=== PATIENT | male | born 1970 | race Caucasian/White ===

== ENCOUNTER → 2021-02-20 09:55 | Outpatient (BNVA) | payer OTHER, SELFPAY | PROVIDERS: Referring Provider Internal Medicine Geriatric Medicine; Visit Provider Nurse Practitioner Family ==

== ENCOUNTER 2021-09-04 13:16 | Outpatient (REF) | payer OTHER, SELFPAY ==
--- NOTE | ~2021-09-04 | US_ITS ---
EXAMINATION: US SCROTUM CLINICAL INFORMATION: Scrotal pain. COMPARISON: None. TECHNIQUE: A sonogram of the scrotum was performed assessing bass-scale appearance and color Doppler flow. Spectral Doppler analysis of the arterial and venous flow were performed in the testes bilaterally. FINDINGS: RIGHT: Right testicle measures 4.4 x 1.7 x 2.7 cm, volume 10.3 mL. No focal testicular parenchymal lesions are visualized. Spectral Doppler analysis of the arterial and venous flow is normal in the right testis. There is a small anechoic cyst right testicle upper pole measuring 0.2 x 0.2 x 0.2 cm. Right epididymal head is normal in size. No right hydrocele or varicocele is seen. Right epididymal Doppler flow is normal. LEFT: Left testicle measures 5.3 x 2.0 x 3.1 cm, volume 17.2 mL. No focal testicular parenchymal lesions are visualized. Spectral Doppler analysis of the arterial and venous flow is normal in the left testis. Left epididymal head is normal unremarkable except for a small cyst measuring 0.4 x 0.4 x 0.4 cm. No left hydrocele or varicocele is seen. Left epididymal Doppler flow is normal. US/US scrotum IMPRESSION: Small right scrotal cyst measuring 0.2 cm. Otherwise both testes are unremarkable. There is a small left epididymal head cysts. Otherwise both epididymides are normal. There is normal vascular flow seen to both testes and epididymides.
== END 2021-09-04 13:17 | disposition home or self-care (01) ==
LOC: HO.US 13:16
PROVIDERS: PCP Internal Medicine Geriatric Medicine; Visit Provider Internal Medicine Geriatric Medicine
DX: N50.82 Scrotal pain (principal)
CPT/HCPCS: 76870

== ENCOUNTER 2022-12-11 11:13 | Outpatient (REF) | payer OTHER, SELFPAY ==
--- NOTE | ~2022-12-11 | XR_ITS ---
EXAMINATION: XR SHOULDER, RIGHT CLINICAL INFORMATION: Pain of one month's duration. COMPARISON: None available. TECHNIQUE: AP external rotation, Grashey, scapular Y, and axillary views of the right shoulder. FINDINGS: Bony alignment and mineralization are normal. The glenohumeral joint is intact and shows moderate osteoarthritic change. The acromioclavicular and coracoclavicular intervals are normal. There is moderately severe osteoarthritic change of the acromioclavicular joint. No fracture or dislocation is seen. There is cortical irregularity of the greater tuberosity of the proximal right humerus. There is no soft tissue calcification or foreign body. No right pneumothorax is seen. XR/XR shoulder RT min 2V IMPRESSION: 1. There is moderate osteoarthritic change of the right glenohumeral joint, and moderately severe osteoarthritic change is seen of the acromioclavicular joint. 2. Cortical irregularity of the greater tuberosity of the proximal right humerus suggests possible rotator cuff impingement. No marla calcific tendinitis is noted.
== END 2022-12-11 11:14 | disposition home or self-care (01) ==
LOC: HO.HHCX 11:13
PROVIDERS: Visit Provider Registered Nurse
DX: M25.511 Pain in right shoulder (principal)
CPT/HCPCS: 73030

== ENCOUNTER 2023-01-28 11:16 | Outpatient (REF) | payer OTHER, SELFPAY ==
[2023-01-28 14:27] LABS: Anion Gap 14 (12-20); Blood Urea Nitrogen 11 mg/dL (9-16); Calcium 10.1 mg/dL (8.4-10.2); Carbon Dioxide 25 mmol/L (22-29); Chloride 101 mmol/L (96-108); Estimated Glomerular Filt Rate > 60; Glucose Random 79 mg/dL (60-115); Sodium 136 mmol/L (135-145)
== END 2023-01-28 11:17 | disposition home or self-care (01) ==
LOC: HO.HHCL 11:16
PROVIDERS: Visit Provider Registered Nurse
DX: I10 Essential (primary) hypertension (principal)
CPT/HCPCS: 36415; 80048

== ENCOUNTER 2023-02-12 13:01 | Outpatient (AMB) | payer OTHER, SELFPAY ==
--- NOTE | 2023-02-12 13:08 | MHC.OFFVIS ---
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 The patient describes his pain as sharp and severe in nature. His pain has gotten worse over the last few years in spite of continued non operative treatments. He has been to physical therapy which gave him minimal relief. He has also tried Tylenol and anti-inflammatory medicines which gave him only mild relief. He has had cortisone injections in the past which gave him temporary relief. The patient reports weakness when lifting his right hand above shoulder height. 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 Physical Exam Vital Signs: BMI result Body Mass Index 30.0 Const Other: Well-nourished well-developed very friendly male awake alert and oriented x3 in no acute distress Extrem Other: Bilateral upper extremity examination shows good capillary refill, no skin lesions noted, normal sensation light touch Right shoulder examination shows decreased range of motion when compared to his left shoulder, 4+ out of 5 strength with supraspinatus testing, positive impingement signs, tenderness over his acromioclavicular joint, no instability Office Procedures Joint Injection/Drain Joint Injection/Drain Primary Site: right shoulder Prep: site was prepped using aseptic technique Injected: 40 mg of, Kenalog and 1% lidocaine with epinephrine 1:100,000 Procedure: The patient tolerated the procedure well Coding 85475 - Large joint Procedure code (CPT) selection complete Results Reviewed Results Reviewed: X-rays of the patient's right shoulder show severe acromioclavicular joint narrowing, a type 3 acromion, no acute bony abnormalities Assessment & Plan Assessment & Plan (1) Impingement of right shoulder: Code(s): M25.811 - Other specified joint disorders, right shoulder Plan: Mr. Espino presents with right shoulder pain and weakness due to impingement syndrome, acromioclavicular joint arthritis and possible rotator cuff tearing. I had a lengthy discussion with the patient regarding the treatment options. The risks and benefits of a cortisone injection were discussed at length with the patient. The patient wished to proceed. He tolerated the injection well. I will also send the patient for an MRI of his right shoulder to further evaluate the status of his rotator cuff tendons. I will see him back once the MRI is completed to discuss the findings and treatment options. Feel free to call me at any time should questions regarding his orthopedic management arise. Thank you very much for asking me to see this very friendly gentleman. I spent 22 minutes in reviewing the patient's records and imaging studies, seeing the patient and documenting in the medical record. Orders: Orders AMB Joint Injection/Aspiration Today M25.811 - Other specified joint disorders, right shoulder MR shoulder RT wo con Today M25.811 - Other specified joint disorders, right shoulder Coding Level of Care Code New Pt Level 2 (65284) Diagnoses Impingement of right shoulder M25.811 CPT Codes Coding - Large joint: 50630 - Large joint ([id number])
== END 2023-02-12 13:48 | disposition home or self-care (01) ==
PROVIDERS: PCP Internal Medicine Geriatric Medicine; Visit Provider Orthopaedic Surgery
DX: M25.811 Other specified joint disorders, right shoulder (principal)
CPT/HCPCS: 20610; 99202

== ENCOUNTER → 2023-02-12 13:01 | Outpatient (BNVA) | payer OTHER, SELFPAY | PROVIDERS: PCP Internal Medicine Geriatric Medicine; Visit Provider Orthopaedic Surgery | DX: M25.811 Other specified joint disorders, right shoulder (principal) | CPT/HCPCS: 20610; J3301 ==

== ENCOUNTER 2023-04-20 09:50 | Outpatient (REF) | payer OTHER, SELFPAY ==
--- NOTE | ~2023-04-20 | MR_ITS ---
EXAMINATION: MR SHOULDER WITHOUT CONTRAST, RIGHT CLINICAL INFORMATION: M25.811 - Other specified joint disorders, right shoulder. Patient reports right shoulder pain. Decreased range of motion. COMPARISON: None available. TECHNIQUE: MRI of the shoulder without contrast was attempted on a high-field scanner. However the patient could not complete the examination because of claustrophobia. A single axial T2 weighted sequence was obtained limited by image degrading motion artifact. FINDINGS: Limited evaluation as above. Subscapularis appears intact. Infraspinatus and teres minor intact. Limited assessment of this supraspinatus tendon. Suspect tendinosis and perhaps minimal interstitial partial tear without measurable defect. BICEPS: Normal. CORACOACROMIAL ARCH: Limited evaluation. There is hypertrophic osteoarthritis of the acromioclavicular joint. LABRUM/CAPSULE: There is heterogeneous increased signal throughout the anterior and posterior labrum likely reflecting degenerative change or nondisplaced degenerative tearing. Possible paralabral cystic change along the anterior inferior labral ligamentous complex which can commonly be associated with labral tear. GLENOHUMERAL JOINT/MARROW: There is nonuniform cartilage loss throughout the glenohumeral joint along with marginal osteophytes indicative of osteoarthritis. There is a lobulated lesion within the greater tuberosity. This is bright on T2. No definite surrounding edema. This measures 15 x 15 mm. MR/MR shoulder RT wo con IMPRESSION: 1. Limited examination as the patient could not complete the examination due to claustrophobia. Only a single axial sequence could be obtained which is also limited by image degrading motion artifact. 2. Limited evaluation of the supraspinatus tendon. Suspect tendinosis and perhaps minimal interstitial partial tear but no measurable defect. 3. Osteoarthritis of the acromioclavicular joint. 4. Degenerative change versus nondisplaced degenerative tearing of the anterior and posterior labrum. Possible paralabral cystic change along the anterior inferior labral ligamentous complex which can commonly be associated with labral tear. Lobulated lesion in the greater tuberosity of uncertain etiology and significance. This could reflect a cartilage lesion/enchondroma versus enthesopathic cyst. Other etiologies much less likely. This corresponds to an area of lucency on the radiographs. Consider follow-up MRI imaging without and with contrast if patient willing and able, perhaps on a different model MRI (open MRI) or with the assistance of medication.
== END 2023-04-20 09:51 | disposition home or self-care (01) ==
LOC: HO.MRI 09:50
PROVIDERS: PCP Internal Medicine Geriatric Medicine; Visit Provider Orthopaedic Surgery
DX: M25.811 Other specified joint disorders, right shoulder (principal)
CPT/HCPCS: 73221

== ENCOUNTER 2023-05-07 09:13 | Outpatient (AMB) | payer OTHER, SELFPAY ==
--- NOTE | 2023-05-07 09:14 | MHC.OFFVIS ---
Intake Vital Signs 05/07/23 09:15 Height 5 ft 5 in Weight 180 lb BMI 30.0 Intake Visit Reasons: ov- MRI Shoulder RT review Intake Note: Julián a 52 year old 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 male presents today for a Right shoulder MRI review. Patient also reports that his injection on 02/12/23 has stopped working. He describes his pain as sharp and severe in nature. His pain has gotten worse over the last year in spite of continued non operative treatments. He has done physical therapy which aggravated his pain. He has also tried Tylenol and anti-inflammatory medicines which gave him minimal relief. The patient has difficulty lifting his right hand above shoulder height. 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 Physical Exam Vital Signs: BMI result Body Mass Index 30.0 Const Other: Well-nourished well-developed very friendly male awake alert and oriented x3 in no acute distress Extrem Other: Bilateral upper extremity examination shows good capillary refill, no skin lesions noted, normal sensation light touch Right shoulder examination shows decreased active and passive range of motion when compared to his left shoulder, 4+ out of 5 strength with supraspinatus testing, positive impingement signs, tenderness over his acromioclavicular joint, no instability Results Reviewed Results Reviewed: MRI of the patient's right shoulder show severe acromioclavicular joint narrowing, a type 3 acromion, moderate glenohumeral joint changes, signal change within the supraspinatus tendon most likely due to adhesive capsulitis Assessment & Plan Assessment & Plan (1) Impingement of right shoulder: Code(s): M25.811 - Other specified joint disorders, right shoulder Plan Mr. Espino presents with progressively worsening right shoulder pain and stiffness due to impingement syndrome, acromioclavicular joint arthritis, glenohumeral joint arthritis and adhesive capsulitis. I had a lengthy discussion with the patient regarding the treatment options. At this point he has failed continued non operative treatments. The risks and benefits of right shoulder surgery were discussed at length with the patient. The patient wishes to proceed with surgery. Surgery will most likely involve right shoulder diagnostic arthroscopy with distal clavicle excision, acromioplasty, anterior capsular release and manipulation under anesthesia. Patient will contact my office to pick a surgery date. He will follow-up as instructed. Feel free to call me at any time should questions regarding his orthopedic management arise. I spent 22 minutes in reviewing the patient's records and imaging studies, seeing the patient and documenting in the medical record. Coding Level of Care Code Est Pt Level 2 (67546) Diagnoses Impingement of right shoulder M25.811
== END 2023-05-07 09:49 | disposition home or self-care (01) ==
PROVIDERS: PCP Internal Medicine Geriatric Medicine; Visit Provider Orthopaedic Surgery
DX: M75.41 Impingement syndrome of right shoulder (principal); M19.011 Primary osteoarthritis, right shoulder; M25.811 Other specified joint disorders, right shoulder
CPT/HCPCS: 99213

== ENCOUNTER → 2023-05-07 09:13 | Outpatient (BNVA) | payer OTHER, SELFPAY | PROVIDERS: PCP Internal Medicine Geriatric Medicine; Visit Provider Orthopaedic Surgery ==

== ENCOUNTER 2023-07-02 12:35 | Outpatient (AMB) | payer OTHER, SELFPAY ==
--- NOTE | 2023-07-02 12:38 | MHC.OFFVIS ---
Intake Vital Signs 07/02/23 12:38 Height 5 ft 5 in Weight 180 lb BMI 30.0 Intake Visit Reasons: Pre-Rt Shld Intake Note: Julián is a 52 year old Male who presents for his pre operative appointment for his Right shoulder on 07/12/2023. The patient states that his right shoulder pain has gotten worse over the last year in spite of continued non operative treatments. He has had cortisone injections the most recent injection gave him only temporary relief. He has also tried Tylenol and ibuprofen which gave him minimal relief. Reports intermittent weakness lifting his right hand above shoulder height. He has done physical therapy exercises which aggravated his pain. Most of the pain is along the superior and lateral aspects of his shoulder. 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 Physical Exam Vital Signs: BMI result Body Mass Index 30.0 Const Other: Well-nourished well-developed very friendly male awake alert and oriented x3 in no acute distress Extrem Other: Bilateral upper extremity examination shows good capillary refill, no skin lesions noted, normal sensation light touch Right shoulder examination shows slightly decreased range of motion when compared to his left shoulder, 4+ out of 5 strength with supraspinatus testing, positive impingement signs, tenderness over his acromioclavicular joint, no instability Results Reviewed Results Reviewed: X-rays of the patient's right shoulder show severe acromioclavicular joint narrowing, a type 2 acromion, no acute bony abnormalities MRI of the patient's right shoulder show severe acromioclavicular joint narrowing, a type 2 acromion, signal change within the supraspinatus tendon most likely due to rotator cuff tendinosis versus a small tear Assessment & Plan Assessment & Plan (1) Impingement of right shoulder: Code(s): M25.811 - Other specified joint disorders, right shoulder Plan Mr. Espino presents with progressively worsening right shoulder pain due to impingement syndrome, acromioclavicular joint arthritis and rotator cuff tendinosis versus a small rotator cuff tear. I had a lengthy discussion with the patient regarding the treatment options. At this point he has failed continued non operative treatments. The risks and benefits of right shoulder surgery were discussed at length with the patient. The patient wishes to proceed with surgery. Surgery will most likely involve right shoulder diagnostic arthroscopy with distal clavicle excision, acromioplasty and rotator cuff repair showed a full-thickness tear be found at the time of his surgery. The patient was given a prescription for oxycodone at his preoperative appointment. He will follow-up as instructed. Feel free to call me at any time should questions regarding his orthopedic management arise. I spent 22 minutes in reviewing the patient's records and imaging studies, seeing the patient and documenting in the medical record. Medications: New ibuprofen 800 mg PO Q8H PRN 90 tabs 2RF pain oxycodone Partial Fill upon patient request. 10 mg (2 x 5 mg) PO Q4H PRN 40 tabs 0RF pain Coding Level of Care Code Est Pt Level 2 (23043) Diagnoses Impingement of right shoulder M25.811
== END 2023-07-02 12:53 | disposition home or self-care (01) ==
PROVIDERS: PCP Internal Medicine Geriatric Medicine; Visit Provider Orthopaedic Surgery
DX: M25.811 Other specified joint disorders, right shoulder (principal)
CPT/HCPCS: 99024

== ENCOUNTER → 2023-07-02 12:35 | Outpatient (BNVA) | payer OTHER, SELFPAY | PROVIDERS: PCP Internal Medicine Geriatric Medicine; Visit Provider Orthopaedic Surgery ==

== ENCOUNTER 2023-07-12 07:32 | Day surgery (SDC) | payer OTHER, SELFPAY ==
[2023-07-12] VITALS (7 sets, daily range): BP systolic 120–146; BP diastolic 72–88; PULSE 73–85; RESP 14–18; TEMP 36.2–36.4; O2SAT 93–99; BMI 29.2
--- NOTE | 2023-07-12 08:36 | HO.ANESPROP2 ---
HPI - Anesthesia Eval Consult details Narrative: 52 yo am presenting for right shoulder arthroscopy with DCE. On methadone 57 mg daily. [facility] Active Problems Active Problems: All Active Problems (Updated 07/04/23 @ 09:43 by Mireya Gaffney RN) Impingement of right shoulder (Acute) Nicotine dependence, cigarettes, uncomplicated (Acute) Past Medical History Medical History (Updated 07/04/23 @ 09:43 by Mireya Gaffney RN) Asthma Drug dependence, in remission Nicotine dependence, cigarettes, uncomplicated Hypertension Family History Family History Father High blood pressure Family history of problems with anesthesia: No Surgical History Surgical History (Updated 07/04/23 @ 09:43 by Mireya Gaffney RN) No pertinent past surgical history History of Problems with Anesthesia: No (never had surgery) Social History Social History Are you a primary career advisor to a significant other at home: No Do you presently have visiting nurse or other home services: No Patient Tobacco Use Status: Current everyday Tobacco user Tobacco use type: Cigarette Cigarette Packs Per Day: 1 Cigarettes Per Day: 15 Years Smoked: 38 Substance Use Type Other:: clean > 5 years-taking methadone-take home doses Have you been hit, kicked, punched, or otherwise hurt by someone within the past year? 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 Allergies Allergy/AdvReac Type Severity Reaction Status Date / Time No Known Allergies Allergy Verified 07/02/23 12:41 Home Medications Medication Instructions Recorded Confirmed Last Taken Type amlodipine 10 mg tablet 10 mg PO DAILY 02/20/21 07/04/23 07/12/23 History lisinopril 10 1 tab PO DAILY 02/20/21 07/04/23 Unknown History mg-hydrochlorothiazide 12.5 mg tablet albuterol sulfate 90 mcg/actuation 2 puff inhalation Q4-6H PRN 07/04/23 07/04/23 Unknown History aerosol inhaler (Ventolin HFA) Shortness Of Breath Or Wheezing methadone 57 mg PO DAILY 07/11/23 07/12/23 07/12/23 History Exam Exam Date and Time: July 12, 2023 0840 Height,Weight and Vital Signs: Height 5 ft 5 in Weight 79.56 kg Last Vital Signs Temp 97.1 F 07/12/23 08:17 Pulse 73 07/12/23 08:17 Resp 18 07/12/23 08:17 BP 132/88 07/12/23 08:17 Pulse Ox 97 07/12/23 08:17 O2 Del Method Room Air 07/12/23 08:17 Airway Mallampati Class: III TM Dist: >3cm Neck ROM: Full Loose/Missing/Broken Teeth: No (patient denies) Heart: S1S2 Lungs: CTAB Assessment and Plan Assessment Anesthesia Assessment: Anesthesia Plan Discussed and Chart Reviewed Final Anesthetic Review Family History of Problems with Anesthesia: No History of Problems with Anesthesia: No (never had surgery) NPO: Yes ASA Class: II Final Preanesthetic Review: No Changes in Pt Med Stat, Meds/Allgs Chart Reviewed, Consent Obtained/Reviewed and Anes Risks/Benef Reviewed Patient Risk: Low Procedure Risk: Low Anesthetic Plan Anesthetic Plan: GA, Regional Block (right brachial plexus block) and Agree w/ Assess. and Plan Disposition: Standard PACU
[2023-07-12] MEDS: Lactated Ringers 1,000 ML 50 ML IVCONT (09:01)
--- NOTE | 2023-07-12 11:35 | P.BOP_ITS ---
Brief Operative Note Date of Service: 07/12/23 Pre-op diagnosis: Right shoulder impingement syndrome, right shoulder acromioclavicular joint arthritis, right shoulder glenohumeral joint arthritis, right shoulder adhesive capsulitis Post-op diagnosis: same Procedure: Right shoulder diagnostic arthroscopy with right shoulder arthroscopic glenohumeral joint debridement, right shoulder arthroscopic acromioplasty, right shoulder arthroscopic distal clavicle excision, right shoulder arthroscopic anterior capsular release, right shoulder manipulation under anesthesia Implants: none Surgeon: Fortino Nova MD Anesthesia: GETA and regional Was an Delivery Professional used for this Procedure?: No Estimated blood loss (mL): 10 Pathology: none sent Condition: stable Disposition: PACU
--- NOTE | 2023-07-12 11:36 | W.PM.OPN ---
Operative Note Operative Note Date of Service: 07/12/23 Narrative: After the patient was identified as Julián Espino and his right shoulder was initialed by myself the patient was brought to the holding area where a right shoulder interscalene regional block was performed by the anesthesiologist in routine fashion. The patient was then brought to the operating room where general anesthesia was induced by the anesthesiologist in routine fashion. The patient was given 2 g of IV Ancef preoperatively for infection prophylaxis. Examination under anesthesia of the patient's right shoulder showed decreased passive range of motion when compared to the left shoulder. The patient's right shoulder had passive forward flexion to 110 degrees compared to 170 degrees, external rotation to 30 degrees compared to 60 degrees, and internal rotation to 40 degrees compared to 50 degrees. The patient was gently positioned in the beach chair position with all bony prominences well padded. The patient's right shoulder region and upper extremity were prepped and draped in sterile fashion. A formal time-out was completed. A #11 scalpel blade was used to make a posterior portal 2 cm inferior and 1 cm medial to the posterolateral corner of the acromion. Blunt trocar technique was used to enter the glenohumeral joint in routine fashion. An anterior portal was made just lateral to the coracoid process after proper positioning was confirmed using a spinal needle. Diagnostic arthroscopy showed diffuse grade 2 degenerative changes of the glenoid and humeral head articular surfaces. The articular surfaces were then made smooth using the arthroscopic shaver. There was no evidence of rotator cuff tearing. There was no evidence of injury to the biceps tendon or its insertion onto the glenoid. There was inflammation of the anterior joint capsule consistent with adhesive capsulitis. The ArthroCare Wand was then used to perform an anterior capsular release between the inferior border of the biceps tendon and the superior border of the subscapularis tendon. The arthroscope was then placed from the posterior portal into the subacromial space. A lateral portal was made 2 fingerbreadths lateral to the anterior lateral corner of the acromion. The ArthroCare Wand was used to ablate soft tissues along the undersurface of the acromion as well as to excise the coracoacromial ligament. There was a sharp spur along the undersurface of the acromion which was removed using the hooded bur. The arthroscope was then placed into the lateral portal and the acromioplasty was completed with the bur in the posterior portal using the posterior aspect of the acromion as a cutting block. The ArthroCare Wand was then brought in through the anterior portal and was used to ablate soft tissues along the acromioclavicular joint and distal clavicle. The posterior and superior ligamentous structures were left intact. A distal clavicle excision of 8 mm was performed using the fluted bur. Any remaining bursal tissue was removed using the arthroscopic shaver. The subacromial space was irrigated and then drained. All arthroscopic instruments were removed. A gentle manipulation under anesthesia was then performed. Full passive range of motion was easily obtained. The 3 portals were closed with 3-0 nylon interrupted suture. The subacromial space was injected with Marcaine. Dry sterile dressing was placed over all incisions. The patient's right upper extremity was placed into a sling. The patient was awoken and extubated in the operating room. The patient was transferred to the recovery room in stable condition.
[2023-07-12] MEDS: cefTRIAXone sodium 1 GM in 0.9 % Sodium Chloride 50 ML IV (11:44)
== END 2023-07-12 12:35 | disposition home or self-care (01) ==
PROVIDERS: PCP Internal Medicine Geriatric Medicine; Visit Provider Orthopaedic Surgery
PROC: (CPT 29805; principal; 2023-07-12 10:10)
DX: M75.41 Impingement syndrome of right shoulder (principal); M75.01 Adhesive capsulitis of right shoulder; M19.011 Primary osteoarthritis, right shoulder; M25.811 Other specified joint disorders, right shoulder; I10 Essential (primary) hypertension; Z79.899 Other long term (current) drug therapy; F17.210 Nicotine dependence, cigarettes, uncomplicated
CPT/HCPCS: 29824; 29823; 29826; J0131; J0171; J0690; J0696; J1100; J1885; J2250; J2371; J2405; J2704; J2795; J3010

== ENCOUNTER → 2023-07-12 07:32 | Outpatient (BNV) | payer OTHER, SELFPAY | PROVIDERS: PCP Internal Medicine Geriatric Medicine; Visit Provider Orthopaedic Surgery | DX: M75.41 Impingement syndrome of right shoulder (principal); M19.011 Primary osteoarthritis, right shoulder; M75.01 Adhesive capsulitis of right shoulder | CPT/HCPCS: 29823; 29824; 29826 ==

== ENCOUNTER 2023-07-25 10:55 | Outpatient (AMB) | payer OTHER, SELFPAY ==
--- NOTE | 2023-07-25 06:35 | A.OFFVIS_ITS ---
Intake Vital Signs 07/25/23 11:00 Height 5 ft 5 in Weight 175 lb BMI 29.1 Intake Visit Reasons: PO-Rt Shld 07/12/23 Intake Note: Julián 52 yr old male presents today for his PO visit for his right shoulder 07/12/23 Dressing and sutures removed in office. Information Interpreted: non-clinical & clinical Accompanied by: Self / Same As Patient Allergies No Known Allergies Allergy (Verified 07/25/23 11:01) HPI PO-Rt Shld 07/12/23 HPI Details 52-year-old male who returns to the [facility] today for post-op right shoulder , 07/12/[address] Nova. He states he has improvement in his pain and is doing well overall. He has not been working with physical therapy. He has no concerns today. 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 No erythema or drainage. NVI. Results Reviewed Results Reviewed: Brief Operative Note Date of Service: 07/12/23 Pre-op diagnosis: Right shoulder impingement syndrome, right shoulder acromioclavicular joint arthritis, right shoulder glenohumeral joint arthritis, right shoulder adhesive capsulitis Post-op diagnosis: same Procedure: Right shoulder diagnostic arthroscopy with right shoulder arthroscopic glenohumeral joint debridement, right shoulder arthroscopic acromioplasty, right shoulder arthroscopic distal clavicle excision, right shoulder arthroscopic anterior capsular release, right shoulder manipulation under anesthesia Implants: none Surgeon: Fortino Nova MD Assessment & Plan Assessment & Plan (1) Impingement of right shoulder: Code(s): M25.811 - Other specified joint disorders, right shoulder Plan Sutures removed today, steri strips applied. I did recommend him to attend physical therapy however he declined stating he has no time. I gave him a handout of home exercises in the office today to work on ROM and strengthening. He is currently out of work and states he will be returning in 3 weeks. He will return next week for a follow-up, sooner if needed. Patient Instructions: Scribed for Frank Stafford PA-C, by Fabian Joaquin manager medical, on 07/25/2023 at 11:15 AM EST. IFrank PA-C, have personally reviewed and agree with the information entered by the scribe. Coding Level of Care Code Global (41623) Diagnoses Impingement of right shoulder M25.811
[2023-07-25 11:00] VITALS: BMI 29.1
== END 2023-07-25 12:02 | disposition home or self-care (01) ==
PROVIDERS: PCP Internal Medicine Geriatric Medicine; Visit Provider Physician Assistant
DX: M25.811 Other specified joint disorders, right shoulder (principal)
CPT/HCPCS: 99024

== ENCOUNTER → 2023-07-25 10:55 | Outpatient (BNVA) | payer OTHER, SELFPAY | PROVIDERS: PCP Internal Medicine Geriatric Medicine; Visit Provider Physician Assistant ==

== ENCOUNTER 2023-08-22 11:44 | Outpatient (AMB) | payer OTHER, SELFPAY ==
[2023-08-22 11:48] VITALS: BMI 29.1
--- NOTE | 2023-08-22 11:48 | MHC.OFFVIS ---
Vital Signs 08/22/23 11:48 Height 5 ft 5 in Weight 175 lb BMI 29.1 Intake Visit Reasons: PO-Rt Shld 07/12/23 Intake Note: Julián is a 52 year old male who present for his post operative appointment s/p right shoulder on 07/12/23 Patient reports he is doing well with some discomfort when holding the steering wheel and he has started back at work on Saturday and states it is going well. He continues with his home stretching program. He does not take any medicines for his discomfort. Allergies No Known Allergies Allergy (Verified 08/22/23 11:53) Medication List - Last Reconciled 08/22/23 by Fortino Nova MD albuterol sulfate 90 mcg/actuation (Ventolin HFA) 2 puffs inhalation Q4-6H PRN amlodipine 10 mg PO DAILY ibuprofen 800 mg PO Q8H PRN lisinopril-hydrochlorothiazide 10-12.5 mg 1 tab PO DAILY [methadone 57 mg PO DAILY] oxycodone 10 mg (2 x 5 mg) PO Q4H PRN PFSH Medical History Asthma Drug dependence, in remission Nicotine dependence, cigarettes, uncomplicated Hypertension Surgical History Hx of shoulder surgery (07/12/23) No pertinent past surgical history Family History Father High blood pressure Social History Are you a primary client care representative to a significant other at home: No Do you presently have visiting nurse or other home services: No Patient Tobacco Use Status: Current everyday Tobacco user Tobacco use type: Cigarette Cigarette Packs Per Day: 1 Cigarettes Per Day: 15 Years Smoked: 38 Current occupational status: employed 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 Espino continues to do well after undergoing right shoulder arthroscopic surgery on 07/12/2023. He will continue with his home stretching program. The do's and don'ts of lifting were discussed at length with the patient. He will contact me prior to his follow-up appointment in 2-3 months should any questions or concerns arise. Feel free to call me at any time should questions regarding his orthopedic management arise. Coding Level of Care Code Global (19755) Diagnoses Right shoulder pain M25.511
== END 2023-08-22 12:10 | disposition home or self-care (01) ==
PROVIDERS: PCP Internal Medicine Geriatric Medicine; Visit Provider Orthopaedic Surgery
DX: M25.511 Pain in right shoulder (principal)
CPT/HCPCS: 99024

== ENCOUNTER → 2023-08-22 11:44 | Outpatient (BNVA) | payer OTHER, SELFPAY | PROVIDERS: PCP Internal Medicine Geriatric Medicine; Visit Provider Orthopaedic Surgery ==

== ENCOUNTER 2023-11-06 09:26 | Outpatient (REF) | payer OTHER, SELFPAY ==
[2023-11-06 10:57] LABS: MANUAL DIFF FLAG NO
[2023-11-06 11:10] LABS: Basophils Absolute Auto 0.1 X10*3/uL (0.0-0.2); Basophils Percent Auto 1.2 % (0-2); Eosinophils Absolute Auto 0.5 X10*3/uL (0.0-0.4); Eosinophils Percent Auto 6.7 % (0-4); Hematocrit 43.5 % (42.0-52.0); Hemoglobin 14.9 g/dl (14.0-18.0); Imm Gran Abs Auto 0.05 X10*3/uL (0.00-0.03); Imm Gran Pct Auto 0.7 % (0.0-0.4); Lymphocytes Absolute Auto 2.4 X10*3/uL (1.2-4.9); Lymphocytes Percent Auto 32.5 % (20-40); Mean Corpuscular HGB Conc 34.3 g/dl (31.0-36.0); Mean Corpuscular Hemoglobin 32.5 pg (27.0-33.0); Mean Platelet Volume 9.6 fL (9.4-12.4); Monocytes Absolute Auto 0.7 X10*3/uL (0.1-1.2); Monocytes Percent Auto 9.4 % (2-11); Neutrophils Absolute Auto 3.7 x10*3/uL (2.0-8.3); Neutrophils Percent Auto 49.5 % (45-73); Platelet Count 355 X10*3/uL (160-400); Red Blood Count 4.58 X10*6/uL (4.60-5.80); Red Cell Distribution Width 13.2 % (11.0-16.0); White Blood Count 7.4 X10*3/uL (4.8-10.8)
[2023-11-06 11:34] LABS: Alanine Aminotransferase 17 U/L (0-40); Albumin Level 4.6 g/dL (3.5-5.0); Alkaline Phosphatase 65 U/L (39-117); Anion Gap 11 (12-20); Aspartate Amino Transferase 23 U/L (5-37); Bilirubin Total 0.4 mg/dL (0.0-1.0); Blood Urea Nitrogen 11 mg/dL (9-16); Calcium 9.9 mg/dL (8.4-10.2); Carbon Dioxide 27 mmol/L (22-29); Chloride 105 mmol/L (96-108); Estimated Glomerular Filt Rate > 60; Glucose Random 105 mg/dL (60-115); Sodium 139 mmol/L (135-145); Total Protein 7.5 g/dL (6.5-8.0)
== END 2023-11-06 09:27 | disposition home or self-care (01) ==
LOC: HO.HHCL 09:26
PROVIDERS: Visit Provider Internal Medicine Geriatric Medicine
DX: I10 Essential (primary) hypertension (principal); M25.511 Pain in right shoulder; G89.29 Other chronic pain; N52.2 Drug-induced erectile dysfunction
CPT/HCPCS: 36415; 80053; 85025

== ENCOUNTER 2024-03-04 08:51 | Outpatient (AMB) | payer OTHER, SELFPAY ==
--- NOTE | 2024-03-04 08:57 | A.OFFVIS_ITS ---
Intake Visit Reasons: Right shoulder pain Intake Note: Julián is a 53 year old male who presents with complaints of mild to moderate discomfort in his right shoulder after undergoing right shoulder arthroscopic surgery on 07/12/2023. He denies any fevers or chills. He notices the discomfort mostly when he tries sleeping on his right shoulder. He denies any weakness. He has tried Tylenol and anti-inflammatory medicines which gave him only mild relief. Allergies No Known Allergies Allergy (Verified 03/04/24 09:02) Medication List - Last Reconciled 03/04/24 by Fortino Nova MD albuterol sulfate 90 mcg/actuation (Ventolin HFA) 2 puffs inhalation Q4-6H PRN amlodipine 10 mg PO DAILY ibuprofen 800 mg PO Q8H PRN lisinopril-hydrochlorothiazide 10-12.5 mg 1 tab PO DAILY [methadone 57 mg PO DAILY] methylprednisolone (Medrol (Sha)) PO PER PKG DIR oxycodone 10 mg (2 x 5 mg) PO Q4H PRN PFSH Medical History Asthma Drug dependence, in remission Nicotine dependence, cigarettes, uncomplicated Hypertension Surgical History Hx of shoulder surgery (07/12/23) No pertinent past surgical history Family History Father High blood pressure Social History Are you a primary nurse care manager to a significant other at home: No Do you presently have visiting nurse or other home services: No Patient Tobacco Use Status: Current everyday Tobacco user Tobacco use type: Cigarette Cigarette Packs Per Day: 1 Cigarettes Per Day: 15 Years Smoked: 38 Current occupational status: employed 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, 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 Physical Exam Const Other: Well-nourished well-developed very friendly male awake alert and oriented x3 in no acute distress Extrem Other: Bilateral upper extremity examination shows good capillary refill, no skin lesions noted, normal sensation light touch Right shoulder examination shows that the surgical incisions are well healed, no erythema, full range of motion when compared to his left shoulder, mild discomfort with resisted forward flexion, 5/5 strength with supraspinatus testing, no instability Assessment & Plan Assessment & Plan (1) Right shoulder pain: Code(s): M25.511 - Pain in right shoulder Category: Medical Plan Mr. Espino continues to do fairly well after undergoing right shoulder arthroscopic surgery on 07/12/2023. He does have residual discomfort due to r otator cuff tendinosis. I did give the patient a prescription for a Medrol Dosepak to help with inflammation. He will continue with his [id number] exercises to prevent stiffness. He will contact me prior to his follow-up appointment in 3 months should any questions or concerns arise. Feel free to call me at any time should questions regarding his orthopedic management arise. I spent 21 minutes in reviewing the patient's records and imaging studies, seeing the patient and documenting in the medical record. Medications: New methylprednisolone (Medrol (Sha)) PO PER PKG DIR 21 ea 0RF Coding Level of Care Code Est Pt Level 3 (46156) Complex EM visit Add On G2211 Diagnoses Right shoulder pain M25.511
== END 2024-03-04 09:14 | disposition home or self-care (01) ==
LOC: HO.HOS 08:51
PROVIDERS: PCP Internal Medicine Geriatric Medicine; Visit Provider Orthopaedic Surgery
DX: M25.511 Pain in right shoulder (principal)
CPT/HCPCS: 99213

== ENCOUNTER 2024-03-04 09:51 | Outpatient (REF) | payer OTHER, SELFPAY ==
[2024-03-04 12:08] LABS: Cholesterol 142 mg/dL (<200); HDL Cholesterol 45 mg/dL (>40); LDL Cholesterol Calculated 85 mg/dL (<100); Triglycerides 61 mg/dL (<150)
[2024-03-12 12:28] LABS: Testosterone, Total 592 ng/dL (250-1100)
== END 2024-03-04 09:52 | disposition home or self-care (01) ==
LOC: HO.HHCL 09:51
PROVIDERS: Visit Provider Internal Medicine Geriatric Medicine
DX: N52.8 Other male erectile dysfunction (principal); I10 Essential (primary) hypertension; M25.511 Pain in right shoulder; G89.29 Other chronic pain; N52.2 Drug-induced erectile dysfunction
CPT/HCPCS: 36415; 80061; 84403

== ENCOUNTER 2024-08-05 08:15 | Outpatient (AMB) | payer OTHER, SELFPAY ==
--- OUTSIDE RECORDS SUMMARY | 2024-08-05 08:23 | XMS_ITS | Clinical Summary ---
Author Organization [employer] [facility] ity Address [address] [place] [address] Care Team Providers Care Java [id number] Application Developer Name Role Phone Unavailable Primary Care Provider Unavailabl e Social History Tobacco Use Types Packs/Day Years Used Date Smoking Tobacco: Never Assessed Sex and Gender Information Value Date Recorded Sex Assigned at Not on file Legal Sex Male 4:37 AM EST Gender Identity Not on file Sexual Orientation Not on file Plan of Treatment Health Maintenance Due Date Last Done Comments DTaP,Tdap,and Td Vaccines (1 - Tdap) 1988 Hepatitis B Vaccines (1 of 3 - 19+ 3-dose series) 1988 Pneumococcal Vaccine: 50+ Ye ars (1 of 1 - PCV) 09/29/2019 Zoster Vaccines (1 of 2) 09/29/2019 COVID-19 Vaccine ( - 2023-2 5 season) 2023 Influenza Vaccine (#1) 2023 HIB Vaccines Aged Out No longer eligi ble based on patient's age to complete this topic HPV Vaccines Aged Out No longer eligi ble based on patient's age to complete this topic Hepatitis A Vaccines Aged Out No long er eligible based on patient's age to complete this topic IPV Vaccines Aged Out No longer eligi ble based on patient's age to complete this topic MMR Vaccines Aged Out No longer eligi ble based on patient's age to complete this topic Meningococcal ACWY Vaccine Aged Out N o longer eligible based on patient's age to complete this topic Meningococcal B Vaccine Aged Out No l onger eligible based on patient's age to complete this topic Pneumococcal Vaccine: Pediat rics (0 to 5 Years) and At-Risk Patients (6 to 64 Years) Aged Out No longer eligible b ased on patient's age to complete this topic RSV Immunization Patients Un kelly 20 months Aged Out No longer eligible b ased on patient's age to complete this topic Varicella Vaccines Aged Out No longer eligible based on patient's age to complete this topic
--- OUTSIDE RECORDS SUMMARY | 2024-08-05 08:23 | XMS_ITS | Clinical Summary ---
Author Organization [employer] Address [address] [place] [address] [address] [place] [address] Care Team Providers Care Director Experimental Medicine Name Role Phone Name, Derrell VEGA Primary Care Provider [phone] Allergies No known active allergies Medications albuterol 108 (90 Base) MCG/ACT inhaler Inhale 2 puffs Every 4-6 hours as needed for shortness of breath. Max 4 uses per day. 8 Active methadone (Dolophine) 10 MG/ML solution Take as directed by methadone clinic, last known dose = 75 mg per day. Active lisinopril-hydroC HLOROthiazide 10-12.5 MG tabletIndications :Primary hypertension Take 1 tablet by mouth in the morning. 90 tablet 1 3 Active amLODIPine (Norvasc) 10 MG tabletIndications :Primary hypertension Take 1 tablet (10 mg) by mouth in the morning. 90 tablet 1 3 Active Diclofenac Sodium (Voltaren Arthritis Pain) 1 % gelIndications:Ac [place] pain of right shoulder Apply a thin layer by topical route to right shoulder 3-4 times daily as needed. 50 g 1 3 Active lidocaine (Xylocaine) 5 % ointment Apply to right shoulder 3-4 times a day as needed for pain 1 g 1 3 Active nicotine polacrilex (Nicorette) 4 MG gum Chew 1 each (4 mg) if needed for smoking cessation. 100 each 4 Active Multiple Vitamin (multivitamin) capsule Take 1 capsule by mouth Once per day. 30 capsule 11 4 03/02/20 25 Active tadalafil (Cialis) 20 MG tablet Take 1 tablet (20 mg) by mouth if needed each day for erectile dysfunction. 10 tablet 3 5 Active amoxicillin-clavu lanate (Augmentin) 875-125 MG tabletIndications :Dental infection Take 1 tablet by mouth 2 times daily for 10 days. 20 tablet 5 08/01/19 25 Active Problems Problem Noted Date Diagnosed Date Dental infection 07/21/2024 Assessment & Plan (07/21/2024 11:30 AM EDT): Tooth extraction x6 days ago. Today noticed pain radiating into right ear. Exam benign, no sing of outward infection. Suspect possible, deep/root infection. Will treat with abx empirically and encouraged to follow-up with dentist. -Prescribed amoxicillin-clavulanate (Augmentin) 875-125 MG ,Take 1 tablet by mouth 2 times daily for 10 days. Impingement of right shoulder 08/01/2023 Nicotine dependence, cigarettes, uncomplicated 0 08/01/2023 Cigarette smoker 12/16/2022 Overview (12/16/2022): ?? Age initiated: 16 years old ?? Currently smoking 1 ppd (greater quantity in the past) ?? Pack year history: >30 pack year history ?? Referral to [facility] Lung Ca screening program: 12/11/22 Assessment & Plan (12/16/2022 11:11 AM EDT): -Encouraged smoking cessation resources such as pharmacomtherapy, [facility] smoking cessation group, and [facility] pharmacy smoking cessation clinic -Start NRT patches and nicotrol inhaler Tinea pedis 05/08/2022 Onychomycosis 05/08/2022 Obesity (BMI 30.0-34.9) 05/08/2022 Allergic rhinitis 01/11/2015 Patient on methadone maintenance therapy 013 Asthma 02/28/2012 Hypertension 02/28/2012 Overview (12/16/2022): Refill of medications sent to pharmacy: ?? Lisinopril-hydrochlorothiazide 10-12.5mg ?? Amlodipine 10mg daily Assessment & Plan (12/16/2022 11:09 AM EDT): -BP elevated in office, likely related to not having medications over the past 2 months -No chest pain, SOB, palpitations, confusion, ACOSTA, blurry vision -Restart meds for BP, and follow up for RN BP check in 2 weeks -Repeat BMP 2 weeks after restarting meds -Reviewed ED precautions Encounters Date Type Department Care Team Description 07/21/2024 10:40 AM EDT Office Visit [facility] [address] [place] [address] Berna Zheng MD Dental infection (Primary Dx) 06/22/2024 Refill [facility] MEDICINE [address] [place] [address] Name, MD Derrell 05/21/2024 Telephone [facility] MEDICINE [address] [place] [address] [phone] Moe Moore MA june recalls from Last 3 Months Immunizations Name Administration Dates Next Due Tdap 08/02/2023,10/06/2009 Social History Tobacco Use Types Packs/Day Years Used Date Smoking Tobacco: Every Day Cigarettes Smokeless Tobacco: Never Tobacco Cessation:Ready to Q uit: Not Asked; Counseling Given: Not Answered Alcohol Use Standard Drinks/Week Comments Not Currently 0 (1 standard drink = 0.6 oz pur e alcohol) Alcohol Answer Date Recorded Frequency of Alcohol Consumption Not on file 11/12/2023 Average Number of Drinks Not on file 024 Frequency of Binge Drinking Not on file 10/27 Score 0 11/12/2023 Depression Answer Date Recorded Patient Health Questionnaire-9 Score 7 03/02/2024 Patient Health Questionnaire-9 Score 7 03/02/2024 Last PHQ-9: Questionnaire Data Not on file 1 05/02/2023 Housing Stability Answer Date Recorded What is your housing situation today? I have housing today, but I am worried about losing housing in the future 03/02/[address] you li ve. Do you have problems with any of the following? None of the above 03/02/2024 Food Insecurity Answer Date Recorded Within the past 12 months, y ou worried that your food would run out before you got money to buy more: Never True 03/02/2024 Within the past 12 months,th e food you bought just didn't last and you didn't have enough money to get more: Never True 07/2023 Transportation Answer Date Recorded In the past 12 months, has l ack of transportation kept you from medical appts, meetings, work or from getting things needed for daily living? No 03/02/2024 Utilities Answer Date Recorded In the past 12 months, has t he electric, gas, oil or water company threatened to shut off services in your home? No 03/02/2024 Depression Answer Date Recorded Patient Health Questionnaire-2 Score 3 03/02/2024 Internet Access Answer Date Recorded Internet Access Q1 Yes 03/02/2024 Internet Access Q2 Not on file 03/02/2024 Sex and Gender Information Value Date Recorded Sex Assigned at Male 02/26/2022 10:15 AM EDT Legal Sex Male 10:15 AM EDT Gender Identity Male 02/26/2022 10:15 AM EDT Sexual Orientation Straight 02/26/2022 10 :15 AM EDT Last Filed Vital Signs Vital Sign Reading Time Taken Comments Blood Pressure 146/88 07/21/2024 10:39 AM EDT Pulse 77 07/21/2024 10:39 AM EDT Temperature 36.7 ??C (98.1 ??F) 07/21/2024 10:39 AM E DT Respiratory Rate 16 07/21/2024 10:39 AM EDT Oxygen Saturation 98% 07/21/2024 10:39 AM EDT Inhaled Oxygen Concentration - - Weight 68.9 kg (152 lb) 07/21/2024 10:39 AM EDT Height 167.6 cm (5' 6 ) 11/12/2023 10:30 AM EDT Body Mass Index 24.53 11/12/2023 10:30 AM EDT Plan of Treatment Upcoming Encounters Date Type Department Care Team (Late st Contact Info) Description 08/05/2024 10:45 AM EDT Office Visit [facility] MEDICINE [address] [place] [address] Name, MD Derrell [address] [place] [address] Health Maintenance Due Date Last Done Comments CT Colonography 1969 Colonoscopy 1969 FIT 1969 Sigmoidoscopy 1969 Hepatitis B Vaccines (1 of 3 - 19+ 3-dose series) 1988 Pneumococcal Vaccine: 50+ Years (1 of 2 - PCV) 1988 Zoster Vaccines (1 of 2) 09/29/2019 FOBT 03/13/2022 03/13/2021 COVID-19 Vaccine (4 - 2023-2 5 season) 2023 08/11/2021, 10/12/2020, 09/14/2020 Influenza Vaccine (#1) 2023 Alcohol/Substance Use Screening 11/11/2024 11/12/2023 Tobacco Screening 11/11/2024 11/12/2023 Depression Screening 03/02/2025 03/02/2024, 03/02/2024 SDOH Screening 03/02/2025 03/02/2024 Colorectal Cancer Screening 07/15/2027 FIT DNA/Cologuard 07/15/2027 07/14/2024, 03/13/2021, 03/13/2021 Lipid Panel 03/04/2029 03/04/2024, 07/11/2021, 05/09/2020 DTaP/Tdap/Td Vaccines (3 - T d or Tdap) 08/01/2033 08/02/2023, 10/06/2009 RSV Patients and Patients Aged 60 years or older (1 - 1-dose 75+ series) 2044 Hepatitis C Screening Completed 09/14/2020 HIV Screening Completed 07/11/2021 HIB Vaccines Aged Out No longer eligi [...] patient's age to complete this topic Meningococcal Vaccine Aged Out No estephanie oliva eligible based on patient's age to complete this topic RSV under 20 months Aged Out No longe r eligible based on patient's age to complete this topic Rotavirus Vaccines Aged Out No longer eligible based on patient's age to complete this topic Procedures Procedure Name Priority Date/Time Associated Diagnosis Comments LIPID PANEL, STANDARD Routine 03/04/2024 9:55 AM EST Hypertension, unspecified type Chronic right shoulder pain Drug-induced erectile dysfunction HIV 1/2 ANTIGEN/ANTIBODY, FOURTH GENERATION W/RFL Routine 07/11/2021 1:08 PM EDT HM FIT DNA/COLOGUARD CANCER SCREENING Routine 03/13/2021 ZZZ HISTORICAL HEPATITIS C AB W/REFL TO HCV RNA, QN, PCR Routine 09/14/2020 10:34 AM EDT from Last 3 Months or Most Recently Relevant to Health Maintenance Results * Lipid Panel, Standard (03/04/2024 9:55 AM EST) Triglycerides 61 <150 mg/dL [facility] Comment:Desirable Triglyceri de: less than 150 mg/dLBorderline High Triglyceride 150-199 mg/dLHigh Triglyceride: 200-499 mg/dLVery High Triglyceride: greater than or equal to 5OO mg/dL Cholesterol 142 <200 mg/dL [facility] Comment:Desirable Cholestero l: less than 200 mg/dLBorderline High Cholesterol: 200-239 mg/dLHigh Cholesterol: greater than 239 mg/dL LDL Cholesterol Calculated 85 <100 mg/dL [facility] Comment:Desirable LDL: less than 100 mg/dLNear Optimal/Above Optimal LDL: 110- 129 mg/dLBorderline High LDL: 130-159 mg/dLHigh LDL: 160-189 mg/dLVery High LDL: greater than or equal to 190 mg/dL HDL Cholesterol 45 >40 mg/dL [facility] Comment:Desirable HDL: great er than 40 mg/dL Note: This HDL assay may give artificially low results in patients with liver disease. Blood Venous blood specimen / Unknown 03/04/2024 9:55 AM EST 03/04/2024 11:25 AM EST us Derrell Vasquez MD LAB BLOOD ORDERABLES Final Resul t [facility] [address] [place] [phone] * HIV 1/2 ANTIGEN/ANTIBODY,FOURTH GENERATION W/RFL (07/11/2021 1:08 PM EDT) Pathologist [facility] HIV-1/2 ANTIGEN AND ANTIBODIES, 4TH GENERATION W/ REFLEX NON-REACT PRATIK NON-REACT PRATIK [facility] Comment: HIV-1 antigen and HIV-1/HIV-2 antibodies were not detected. There is no laboratory evidence of HIV infection. ?? PLEASE NOTE: This information has been disclosed to you from records whose confidentiality may be protected by state law. ??If your state requires such protection, then the state law prohibits you from making any further disclosure of the information without the specific written consent of the person to whom it pertains, or as otherwise permitted by law. A general authorization for the release of medical or other information is NOT sufficient for this purpose. ? For additional information please refer to http://[employer].Incuvo/faq/JEC367 (This link is being provided for informational/ educational purposes only.) ? The performance of this assay has not been clinically validated in patients less than 2 years old. ?? 07/11/2021 1:08 PM EDT Myra Muro [facility] LAB BLOOD ORDERABLES Final Res ult [facility] [address] * FIT DNA/Cologuard Cancer Screening (03/13/2021) [facility] Cologuard Cancer Screen Negative Stool [facility] External Provider HEALTH MAINTENANCE Final Result * (ABNORMAL) HEPATITIS C AB W/REFL TO HCV RNA, QN, PCR (09/14/2020 10:34 AM EDT) [facility] HEPATITIS C ANTIBODY REACTIVE( A) NON-REACT PRATIK [facility] INDEX 30.60(H) <1.00 [facility] Comment: ?? Based on this result, the sample will be tested for HCV RNA by a Nucleic Acid Amplification Test (NAAT) to determine if the patient has a current active infection. ?? 09/14/2020 10:3 4 AM EDT us Derrell Vasquez MD HISTORICAL/NON ORDERABLE LABS Fi nal Result [facility] [address] from Last 3 Months or Most Recently Relevant to Health Maintenance Insurance [employer] Care Teams Director Experimental Medicine Relationship Specialty Start Date End Date Name, MD Derrell [address] [place] [address] PCP - General Family Medicine 07/19/15
--- NOTE | 2024-08-05 08:30 | MHC.OFFVIS ---
Vital Signs 08/05/24 08:31 Height 5 ft 5 in Weight 175 lb BMI 29.1 Intake Visit Reasons: Right shoulder discomfort Intake Note: Julián is a 53 year old male who presents with complaints of mild intermittent discomfort in his right shoulder after undergoing right shoulder arthroscopic surgery on 07/12/2023. He continues with his home stretching program. He does not take any medicines for his discomfort. He denies any fevers or chills. Allergies No Known Allergies Allergy (Verified 08/05/24 08:34) Medication List - Last Reconciled 08/05/24 by Fortino Nova MD albuterol sulfate 90 mcg/actuation (Ventolin HFA) 2 puffs inhalation Q4-6H PRN amlodipine 10 mg PO DAILY ibuprofen 800 mg PO Q8H PRN lisinopril-hydrochlorothiazide 10-12.5 mg 1 tab PO DAILY [methadone 57 mg PO DAILY] methylprednisolone (Medrol (Sha)) PO PER PKG DIR oxycodone 10 mg (2 x 5 mg) PO Q4H PRN PFSH Medical History Asthma Drug dependence, in remission Nicotine dependence, cigarettes, uncomplicated Hypertension Surgical History Hx of shoulder surgery (07/12/23) No pertinent past surgical history Family History Father High blood pressure Social History Are you a primary neonatal intensive care unit nurse to a significant other at home: No Do you presently have visiting nurse or other home services: No Patient Tobacco Use Status: Current everyday Tobacco user Tobacco use type: Cigarette Cigarette Packs Per Day: 1 Cigarettes Per Day: 15 Years Smoked: 38 Current occupational status: employed 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, 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 Physical Exam Vital Signs: BMI result Body Mass Index 29.1 Const Other: Well-nourished well-developed very friendly male awake alert and oriented x3 in no acute distress Extrem Other: Bilateral upper extremity examination shows good capillary refill, no skin lesions noted, normal sensation light touch Right shoulder examination shows that the surgical incisions are well healed, no erythema, full range of motion when compared to his left shoulder, 5/5 strength with supraspinatus testing, no instability Assessment & Plan Assessment & Plan (1) Right shoulder pain: Code(s): M25.511 - Pain in right shoulder Category: Medical Plan Mr. Espino continues to do well after undergoing right shoulder arthroscopic surgery on 07/12/2023. He does have residual discomfort due to early glenohumeral joint degenerative changes. At this point the patient's symptoms are tolerable to him. We will hold off on a cortisone injection. He will continue with his home stretching program. He will follow up with me on an as-needed basis should his symptoms worsen in any way. Feel free to call me at any time should questions regarding his orthopedic management arise. I spent 20 minutes in reviewing the patient's records and imaging studies, seeing the patient and documenting in the medical record. Coding Level of Care Code Est Pt Level 3 (20288) Complex EM visit Add On G2211 Diagnoses Right shoulder pain M25.511
[2024-08-05 08:31] VITALS: BMI 29.1
== END 2024-08-05 08:52 | disposition home or self-care (01) ==
LOC: HO.HOS 08:15
PROVIDERS: PCP Internal Medicine Geriatric Medicine; Visit Provider Orthopaedic Surgery
DX: M25.511 Pain in right shoulder (principal)
CPT/HCPCS: 99213

== ENCOUNTER → 2024-08-05 08:15 | Outpatient (BNVA) | payer OTHER, SELFPAY | PROVIDERS: PCP Internal Medicine Geriatric Medicine; Visit Provider Orthopaedic Surgery ==